=== PATIENT | female | born 1995 | race Caucasian/White ===

== ENCOUNTER 2018-03-17 15:39 | Emergency (ER) | payer SELFPAY ==
[2018-03-17] MEDS ORDERED: ONDANSETRON 4 MG TAB.RAPDIS PO ONE (17:25)
[2018-03-17 18:07] LABS: APPEARANCE,URINE SLIGHTLY-CLOUDY; BILIRUBIN,URINE NEGATIVE (NEGATIVE); COLOR,URINE YELLOW; GLUCOSE, URINE NEGATIVE (NEGATIVE); KETONES,URINE 300 mg/dL (NEGATIVE); LEUKOCYTE ESTERASE,URINE NEGATIVE (NEGATIVE); NITRITE,URINE NEGATIVE (NEGATIVE); PROTEIN,URINE 100 mg/dL (NEGATIVE); URINE SPECIFIC GRAVITY 1.024; UROBILINOGEN,URINE NEGATIVE mg/dL (<2.0)
--- NOTE | 2018-03-17 18:58 | ER Document Report ---
ED GI/ - General Chief Complaint: Nausea/Vomiting Stated Complaint: VOMITING Time Seen by Provider: 03/17/18 17:25 Mode of Arrival: Ambulatory Information source: Patient Notes: Patient presented to the emergency room complaining of nausea vomiting. She denies abdominal pain or diarrhea. Patient also denies chest pain shortness of breath. Review of systems negative. Patient is currently on her regular menstrual cycle. TRAVEL OUTSIDE OF THE [place] IN LAST 30 DAYS: No - HPI Patient complains to provider of: Vomiting. No: Abdominal pain, Diarrhea, Dysuria, , Urinary retention Onset: Just prior to arrival Timing/Duration: Sudden Quality of pain: No pain Severity at maximum: Mild Severity in ED: Mild Pain Level: 0 OB ultrasound done: No vitamins taken: No Associated symptoms: None Exacerbated by: Denies Relieved by: Denies Similar symptoms previously: No Recently seen / treated by doctor: No - Related Data Allergies/Adverse Reactions: No Known Allergies Allergy (Unverified 03/17/18 15:53) Past Medical History - Social History Smoking Status: Never Smoker Chew tobacco use (# tins/day): No Frequency of alcohol use: Social Drug Abuse: Marijuana Family History: Reviewed & Not Pertinent Patient has suicidal ideation: No Patient has homicidal ideation: No Renal/ Medical History: Denies: Hx Peritoneal Dialysis Review of Systems - Review of Systems Constitutional: denies: Chills, Fever EENT: No symptoms reported Cardiovascular: No symptoms reported Respiratory: denies: Cough, Short of breath Gastrointestinal: Nausea, Vomiting. denies: Abdominal pain, Diarrhea Genitourinary: No symptoms reported Female Genitourinary: Other - Menstrual cycle Musculoskeletal: No symptoms reported Skin: No symptoms reported Hematologic/Lymphatic: No symptoms reported Neurological/Psychological: No symptoms reported -: Yes All other systems reviewed and negative Physical Exam - Vital signs Vitals: Temp Pulse Resp BP Pulse Ox 98.3 F 139 H 14 123/83 97 03/17/18 15:54 03/17/18 15:54 03/17/18 15:54 03/17/18 15:54 03/17/18 15:54 - General General appearance: Appears well, Alert In distress: None - HEENT Head: Normocephalic, Atraumatic Eyes: Normal Pupils: PERRL - Respiratory Respiratory status: No respiratory distress Chest status: Nontender Breath sounds: Normal Chest palpation: Normal - Cardiovascular Rhythm: Regular Heart sounds: Normal auscultation Murmur: No - Abdominal Inspection: Normal Distension: No distension Bowel sounds: Normal Tenderness: Nontender Organomegaly: No organomegaly - Back Back: Normal, Nontender - Extremities General upper extremity: Normal inspection, Nontender, Normal color, Normal ROM , Normal temperature General lower extremity: Normal inspection, Nontender, Normal color, Normal ROM , Normal temperature, Normal weight bearing. No: Thang's sign - Neurological Neuro grossly intact: Yes Cognition: Normal Orientation: AAOx4 King Coma Scale Eye Opening: Spontaneous Parks Coma Scale Verbal: Oriented Parks Coma Scale Motor: Obeys Commands Parks Coma Scale Total: 15 Speech: Normal Motor strength normal: LUE, RUE, LLE, RLE Sensory: Normal - Psychological Associated symptoms: Normal affect, Normal mood - Skin Skin Temperature: Warm Skin Moisture: Dry Skin Color: Normal Course - Re-evaluation Re-evalutation: 03/17/18 18:55 Patient tolerated p.o. fluids in the ED without vomiting after receiving Zofran. She wants to be discharged home. - Vital Signs Vital signs: Temp Pulse Resp BP Pulse Ox 98.3 F 139 H 14 123/83 97 03/17/18 15:54 03/17/18 15:54 03/17/18 15:54 03/17/18 15:54 03/17/18 15:54 - Laboratory Laboratory results interpreted by me: 03/17/18 17:35 Urine Protein 100 H Urine Ketones 300 H Urine Blood LARGE H - Transfer of Care Notes: 03/17/18 18:56 Nausea and vomiting. Discharge - Discharge Clinical Impression: Nausea and vomiting Qualifiers: Vomiting type: unspecified Vomiting Intractability: non-intractable Qualified Code(s): R11.2 - Nausea with vomiting, unspecified Condition: Stable Disposition: HOME, SELF-CARE Instructions: Vomiting ([facility]) Additional Instructions: Please follow-up with your primary doctor tomorrow morning. Return to the emergency room if her condition worsens. Prescriptions: Ondansetron [Zofran Odt 4 mg Tablet] 4 mg PO Q6H PRN #20 tab.rapdis PRN Reason: Nausea and vomiting Referrals: EVARISTO GALLARDO MD [Primary Care Provider] - Follow up as needed
[2018-03-17 20:13] VITALS: BP 116/74
== END 2018-03-17 20:11 | disposition home or self-care (01) ==
LOC: ER 15:39
DX: R11.2 Nausea with vomiting, unspecified (principal)
CPT/HCPCS: 99284; 82962; 81025; 81001; S0119

== ENCOUNTER 2018-03-22 19:04 | Emergency (ER) | payer SELFPAY ==
[2018-03-22] MEDS ORDERED: NORMAL SALINE 1000 ML 1,000 ML IV ONE (19:42)
[2018-03-22] MEDS ORDERED: METOCLOPRAMIDE HCL INJ/PF 10 MG/2 ML SDV IV ONE (19:42)
[2018-03-22] MEDS ORDERED: DIPHENHYDRAMINE HCL 50 MG/ML VIAL IV ONE (19:43)
[2018-03-22] MEDS ORDERED: MORPHINE SULFATE 10 MG/ML INJ IV ONE (19:43)
--- NOTE | 2018-03-22 19:44 | ER Document Report ---
ED Medical Screen (RME) - General Chief Complaint: Flank Pain Stated Complaint: FLANK PAIN Time Seen by Provider: 03/22/18 19:38 Mode of Arrival: Ambulatory Information source: Patient Notes: This is a 22-year-old female with no medical problems who presents to the emergency room with 2 days of left lower back pain which is not relieved by anything. Patient states she has had nausea and vomiting for 2 weeks. She denies fever. She denies dysuria. She states is no possibility of her being . She is currently on no medicines and has no allergies. She was given IV Zofran by EMS. TRAVEL OUTSIDE OF THE [place] IN LAST 30 DAYS: No - Related Data Allergies/Adverse Reactions: No Known Allergies Allergy (Verified 03/22/18 19:04) Past Medical History Renal/ Medical History: Denies: Hx Peritoneal Dialysis Physical Exam - Vital signs Vitals: Pulse BP 84 113/63 03/22/18 19:21 03/22/18 19:21 Course - Vital Signs Vital signs: Temp Pulse Resp BP Pulse Ox 84 113/63 03/22/18 19:21 03/22/18 19:21 Doctor's Discharge - Discharge Referrals: SABRINA FERRARO MD [Primary Care Provider] - Follow up as needed
[2018-03-22 20:14] LABS: ABSOLUTE LYMPHOCYTES (AUTO) 1.8 10^3/uL (0.5-4.7); ABSOLUTE MONOCYTES (AUTO) 1.1 10^3/uL (0.1-1.4); ABSOLUTE NEUT (AUTO) 11.9 10^3/uL (1.7-8.2); BASOPHILS % (AUTO) 0.2 % (0-2); EOSINOPHILS % (AUTO) 0.1 % (0-6); HEMOGLOBIN 13.9 g/dL (12.0-15.5); LYMPHOCYTES % (AUTO) 12.3 % (13-45); MEAN CORPUSCULAR HEMOGLOBIN 30.3 pg (27.0-33.4); MEAN CORPUSCULAR HGB CONC 34.8 g/dL (32.0-36.0); MEAN CORPUSCULAR VOLUME 87 fl (80-97); MONOCYTES % (AUTO) 7.7 % (3-13); PLATELET COUNT 229 10^3/uL (150-450); RED CELL DISTRIBUTION WIDTH 13.2 % (11.5-14.0); SEGMENTED NEUTROPHILS % (AUTO) 79.7 % (42-78); TOTAL CELLS COUNTED % (AUTO) 100 %
[2018-03-22 20:31] LABS: ALANINE AMINOTRANSFERASE 22 U/L (9-52); ALBUMIN 4.8 g/dL (3.5-5.0); ALKALINE PHOSPHATASE 75 U/L (38-126); ASPARTATE AMINO TRANSFERASE 16 U/L (14-36); BILIRUBIN,DIRECT 0.7 mg/dL (0.0-0.4); BILIRUBIN,TOTAL 1.6 mg/dL (0.2-1.3); BLOOD UREA NITROGEN 16 mg/dL (7-20); CALCIUM 9.8 mg/dL (8.4-10.2); GLUCOSE 154 mg/dL (75-110); TOTAL PROTEIN 7.8 g/dL (6.3-8.2)
[2018-03-22 20:36] LABS: CARBON DIOXIDE 21 mmol/L (22-30); CHLORIDE 93 mmol/L (98-107)
[2018-03-22 20:52] LABS: ANION GAP 19 (5-19)
[2018-03-22 20:54] LABS: POTASSIUM 2.9 mmol/L (3.6-5.0)
[2018-03-22] MEDS ORDERED: ONDANSETRON HCL INJ/PF 4 MG/2 ML SDV IV ONE (21:03)
[2018-03-22] MEDS ORDERED: RINGERS SOLUTION,LACTATED 1,000 ML IV ONE (21:04)
[2018-03-22] MEDS ORDERED: KETOROLAC TROMETHAMINE INJ/PF 30 MG/1 ML SDV IV ONE (21:05)
[2018-03-22 21:14] LABS: APPEARANCE,URINE CLOUDY; BILIRUBIN,URINE NEGATIVE (NEGATIVE); GLUCOSE, URINE NEGATIVE (NEGATIVE); KETONES,URINE 80 mg/dL (NEGATIVE); LEUKOCYTE ESTERASE,URINE NEGATIVE (NEGATIVE); NITRITE,URINE NEGATIVE (NEGATIVE); PROTEIN,URINE 100 mg/dL (NEGATIVE)
[2018-03-22 21:16] LABS: COLOR,URINE YELLOW
[2018-03-22] MEDS ORDERED: POTASSIUM CHLORIDE 10 MEQ CAPSULE.ER PO ONE (22:56)
[2018-03-22] MEDS ORDERED: CEFTRIAXONE INJ 1000 MG VIAL IV ONE (22:56)
[2018-03-22 22:57] LABS: BACTERIA (WET MOUNT) 4+ BACTERIA SEEN; EPITHELIALS (WET MOUNT) 3+ EPITHELIALS SEEN; T.VAGINALIS (WET MOUNT) NO TRICHOMONAS SEEN; WBCS (WET MOUNT) 1+ WBCS SEEN; YEAST (WET MOUNT) NO YEAST SEEN
[2018-03-22] MEDS ORDERED: METRONIDAZOLE 500 MG TABLET PO ONE (23:43)
[2018-03-22] MEDS ORDERED: DOXYCYCLINE HYCLATE 100 MG TABLET PO ONE (23:43)
--- NOTE | 2018-03-22 23:49 | ER Document Report ---
ED GI/ - General Chief Complaint: Flank Pain Stated Complaint: FLANK PAIN Time Seen by Provider: 03/22/18 19:38 Mode of Arrival: Ambulatory Notes: Patient is a 22-year-old female who presents with chief complaint of left flank pain, left low back pain and nausea vomiting for 2 weeks. Patient reports she is Sabas been seen for this problem was diagnosed with constipation. Patient denies any fever or diarrhea. Denies any history of kidney stones. TRAVEL OUTSIDE OF THE [place] IN LAST 30 DAYS: No - Related Data Allergies/Adverse Reactions: No Known Allergies Allergy (Verified 03/22/18 19:04) Past Medical History - General Information source: Patient - Social History Smoking Status: Never Smoker Family History: Reviewed & Not Pertinent Patient has suicidal ideation: No Patient has homicidal ideation: No - Medical History Medical History: Negative Renal/ Medical History: Denies: Hx Peritoneal Dialysis Surgical Hx: Negative - Immunizations Immunizations up to date: Yes Review of Systems - Review of Systems Gastrointestinal: Nausea, Vomiting Genitourinary: Flank pain -: Yes All other systems reviewed and negative Physical Exam - Vital signs Vitals: Pulse BP 84 113/63 03/22/18 19:21 03/22/18 19:21 - Notes Notes: PHYSICAL EXAMINATION: GENERAL: Well-appearing, well-nourished and in no acute distress. HEAD: Atraumatic, normocephalic. EYES: Pupils equal round and reactive to light, extraocular movements intact, conjunctiva are normal. ENT: Nares patent, oropharynx clear without exudates. Moist mucous membranes. NECK: Normal range of motion, supple without lymphadenopathy LUNGS: Breath sounds clear to auscultation bilaterally and equal. No wheezes rales or rhonchi. HEART: Regular rate and rhythm without murmurs ABDOMEN: Soft, nontender, nondistended abdomen. No guarding, no rebound. No masses appreciated. Female : No CVA tenderness. Speculum exam reveals purulent discharge from the cervical office. Cervical motion tenderness is present. No adnexal tenderness noted. Musculoskeletal: Normal range of motion, no pitting or edema. No cyanosis. NEUROLOGICAL: Cranial nerves grossly intact. Normal speech, normal gait. Normal sensory, motor exams PSYCH: Normal mood, normal affect. SKIN: Warm, Dry, normal turgor, no rashes or lesions noted. Course - Re-evaluation Re-evalutation: CBC reveals a nonspecific leukocytosis, white blood count 15. Patient has hypokalemia at 2.9. Urinalysis reveals hematuria and ketonuria. Wet mount with 4+ bacteria. Patient did have cervical motion tenderness on exam. Patient was given 2 L IV fluids, 1 g IV ceftriaxone, potassium replacement as well as pain and nausea medications through IV. Patient reports she is much improved. Patient diagnosed with pelvic inflammatory disease. GC and Chlamydia are pending will cover empirically. Vital signs have been stable throughout patient's ED course, without hypotension or tachycardia. Patient has been afebrile and has not vomited during her stay. Patient will be discharged home in stable condition with instructions to follow-up with her primary care provider or [facility]. - Vital Signs Vital signs: Temp Pulse Resp BP Pulse Ox 97.9 F 83 16 110/65 98 03/23/18 00:21 03/23/18 00:21 03/22/18 21:05 03/23/18 00:21 03/23/18 00:21 - Laboratory Result Diagrams: 03/22/18 19:55 03/22/18 19:55 Laboratory results interpreted by me: 03/22/18 03/22/18 03/22/18 19:55 19:55 20:52 WBC 15.0 H Seg Neutrophils % 79.7 H Lymphocytes % 12.3 L Absolute Neutrophils 11.9 H Sodium 133.0 L Potassium 2.9 L* Chloride 93 L Carbon Dioxide 21 L Glucose 154 H Total Bilirubin 1.6 H Direct Bilirubin 0.7 H Urine Protein 100 H Urine Ketones 80 H Urine Blood MODERATE H Urine Urobilinogen 4.0 H Discharge - Discharge Clinical Impression: Pelvic inflammatory disease (PID) Condition: Stable Disposition: HOME, SELF-CARE Additional Instructions: Pelvic Inflammatory Disease You have been diagnosed as having pelvic inflammatory disease (PID). This is an infection of the fallopian tubes and surrounding areas of the pelvis. Symptoms are usually pelvic pain and discharge. The infection can do permanent damage to the tubes and ovaries. It should be taken very seriously. Treatment is antibiotics, which may be given by vein or by injection if the infection seems serious. It's important that you receive all recommended medication. Condoms help prevent spread of this infection to others. Because this infection is spread sexually, it's important that your sexual partner be checked before resuming sexual relations. If a culture shows gonorrhea or chlamydia organisms, the law requires that this be reported to the health department. Call the doctor or return at once if you develop increasing fever, rash, severe pelvic pain, vaginal bleeding (other than your period), or problems with your bladder or bowels. Please take antibiotics as prescribed. Your urine looked okay today however he did send it for urine culture, my culture nurse will call you if there is anything abnormal with the urine. Please set up an appointment to follow-up with an [facility], call them this week to set up an appointment. I have enclosed the contact information for several in the area. Prescriptions: Doxycycline Hyclate 100 mg PO BID #14 capsule Metronidazole [Flagyl 500 mg Tablet] 500 mg PO Q6H #28 tablet Promethazine HCl [Phenergan 25 mg Tablet] 1 - 2 tab PO Q6H PRN #15 tablet PRN Reason: Referrals: SANAM RIVERA MD [EMERITUS] - Follow up as needed KORY ARCE MD [ACTIVE STAFF] - Follow up as needed
[2018-03-23 00:22] LABS: CHLAM PCR NOT DETECTED (NOT DETECT); GON PCR NOT DETECTED (NOT DETECT)
[2018-03-23 00:24] VITALS: BP 110/65
== END 2018-03-23 00:24 | disposition home or self-care (01) ==
LOC: ER 19:04
DX: N73.9 Female pelvic inflammatory disease, unspecified (principal); R10.9 Unspecified abdominal pain
CPT/HCPCS: 99284; 96361; 96374; 96375; 36415; 87210; 84702; 85025; 80053; 81001; 87491; 87591; J1200; J1885; J2765; J2270; J0696; J2405